=== PATIENT | male | born 1945 | race Two or more races ===

== ENCOUNTER 2017-11-09 15:50 | Inpatient (IN) | payer MEDICARE ==
[~2017-11-09] VITALS: Ht 172.7 cm; Wt 98.4 kg
[2017-11-09] MEDS ORDERED: INSU100I14 SQ ×2 (16:36)
[2017-11-09] MEDS ORDERED: ENOX40DI SQ (16:36)
[2017-11-09] MEDS ORDERED: INSU100V7 SQ (16:36)
[2017-11-09] MEDS ORDERED: AMLO10TA2 PO (16:36)
[2017-11-09] MEDS ORDERED: TRAZ-144 PO (16:36)
[2017-11-09] MEDS ORDERED: INSU100C SQ (16:36)
[2017-11-09] MEDS ORDERED: DIVA250T4 PO (16:36)
[2017-11-09] MEDS ORDERED: RISP0.5T5 PO (16:36)
[2017-11-09] MEDS ORDERED: TAMS-3 PO (16:36)
[2017-11-09] MEDS ORDERED: GLUC1KIT IM (16:36)
[2017-11-09] MEDS ORDERED: DEXT50DI8 IV (16:36)
[2017-11-09 16:50] LABS: BASOPHILS # (AUTO) 0.1 K/uL (0.0-8.0); BASOPHILS % (AUTO) 0.8 % (0.0-2.0); EOSINOPHILS # (AUTO) 0.2 K/uL (0.0-0.7); EOSINOPHILS % (AUTO) 3.2 % (0.0-7.0); HEMATOCRIT 32.7 % (36.7-47.1); LYMPHOCYTES # (AUTO) 1.2 K/uL (20.0-40.0); LYMPHOCYTES % (AUTO) 18.2 % (20.5-51.5); MEAN CORPUSCULAR HEMOGLOBIN 30.7 uug (23.8-33.4); MEAN CORPUSCULAR HGB CONC 34 g/dL (32.5-36.3); MEAN CORPUSCULAR VOLUME 91.5 fL (73.0-96.2); MONOCYTES # (AUTO) 0.6 K/uL (2.0-10.0); MONOCYTES % (AUTO) 9.9 % (0.0-11.0); NEUTROPHILS # (AUTO) 4.4 K/uL (1.8-8.9); NEUTROPHILS % (AUTO) 67.9 % (38.5-71.5); PLATELET COUNT (AUTO) 179 K/uL (152-348); RED BLOOD CELL COUNT(AUTO) 3.57 MIL/uL (4.06-5.63); WHITE BLOOD COUNT (AUTO) 6.5 K/uL (3.6-10.2)
[2017-11-09 17:11] LABS: ACETAMINOPHEN < 2.0 ug/mL (10-30); ALANINE AMINOTRANSFERASE 33 U/L (16-63); ALKALINE PHOSPHATASE 88 U/L (50-136); ASPARTATE AMINOTRANSFERASE 18 U/L (15-37); BILIRUBIN,DIRECT 0.1 mg/dL (0.0-0.2); BILIRUBIN,TOTAL 0.3 mg/dL (0.2-1.0); CARBON DIOXIDE 29 mmol/L (21-32); CHLORIDE 102 mmol/L (98-107); CREATININE 1.1 mg/dL (0.6-1.3); GLUCOSE 102 mg/dL (74-106); POTASSIUM 4.2 mmol/L (3.5-5.1); TOTAL PROTEIN, SERUM 6.9 g/dL (6.4-8.2); UREA NITROGEN, BLOOD 23 mg/dL (7-18)
[2017-11-09 17:25] LABS: *BILIRUBIN,URIN NEGATIVE (NEGATIVE); *BLOOD, URINE Trace-lysed (NEGATIVE); *CLARITY,URINE SLIGHTLY CLOUDY (CLEAR); *COLOR,URINE YELLOW (YELLOW); *KETONES,URINE NEGATIVE (NEGATIVE); *PROTEIN,URINE NEGATIVE (NEGATIVE); *UROBILINOGEN,URINE 0.2 E.U./dl (NORMAL); LEUKOCYTE ESTERASE ,URINE 2+ (NEGATIVE); NITRITE, URINE NEGATIVE (NEGATIVE); RBC,URINE 0-3 /HPF (0-3); UGLUCOSE NEGATIVE (NEGATIVE); WBC,URINE 50-80 /HPF (0-3)
[2017-11-09 17:26] LABS: BACTERIA,URINE FEW /HPF (NONE SEEN); SQUAMOUS EPITHELIAL CELL,UR FEW /HPF (NONE SEEN)
--- NOTE | 2017-11-09 17:28 | NUR ---
PT WAS EVALUATED BY DR JENNINGS. PT WAS TRANSFERED TO U ROOM #139B. REPORT WAS GIVEN TO MHU RN.
[2017-11-09 17:37] LABS: ETHANOL < 3 MG/DL (0-0)
[2017-11-09 17:44] LABS: *AMPHETAMINE, URINE NEGATIVE (NEGATIVE); *BARBITURATE, URINE NEGATIVE (NEGATIVE); *CANNABINOID, URINE NEGATIVE (NEGATIVE); *COCCAINE, URINE NEGATIVE (NEGATIVE); *OPIATE, URINE NEGATIVE (NEGATIVE); *PHENCYCLIDINE SCREEN,URINE NEGATIVE (NEGATIVE)
[2017-11-09] MEDS ORDERED: MAG HYDROX/AL HYDROX/SIMETH 30 ML LIQUID UDC PO PRN (19:30)
[2017-11-09] MEDS ORDERED: CLONAZEPAM 0.5 MG TABLET PO SCH (19:30)
[2017-11-09] MEDS ORDERED: MAGNESIUM HYDROXIDE 30 ML LIQUID UDC PO PRN (19:30)
[2017-11-09] MEDS ORDERED: ACETAMINOPHEN 325 MG TABLET PO PRN (19:30)
[2017-11-09 19:54] VITALS: BP 156/79
[2017-11-09] MEDS: CLONAZEPAM 0.5 MG TABLET PO PRN (19:55)
[2017-11-09] MEDS: INSULIN GLARGINE,HUM 300 UNITS/3 ML CARTRIDGE SQ SCH (22:45)
[2017-11-09] MEDS ORDERED: INSULIN REGULAR, HUMAN 300 UNIT/3 ML VIAL SQ PRN (22:45)
[2017-11-09] MEDS ORDERED: hydrALAZINE HCL 25 MG TABLET PO PRN (22:45)
[2017-11-09] MEDS ORDERED: DEXTROSE 50% 50 ML DISP.SYRIN IV PRN (22:45)
--- NOTE | 2017-11-09 22:49 | NUR ---
PATIENT PRESENT UPON CHANGE OF SHIFT, ON 72 HOUR HOLD DUE TO GRAVELY DISABLED, DR. MEYERS/LINDSEY. PATIENT ALERT/ORIENTED X2 WITH CONFUSION NOTED, PATIENT HYPERVERBAL, ANXIOUS IN AND OUT OF ROOM. SKIN INTACT. PATIENT STATED " I NEED HELP AND SLEEP, I DON'T WANT MY TO SCARED OF ME." PATIENT DENIES PAIN AT THIS TIME,WILL CONTINUE TO MONITOR. NO AGGRESSIVE OR COMBATIVE BEHAVIOR NOTED, WILL CONTINUE TO MONITOR AND REDIRECT. BED IN LOWEST POSITION, BED LOCKED, AND BED ALARM ON WHILE IN BED. PATIENT ORIENTED TO ROOM AND UNIT. PATIENT'S RIGHTS HAND BOOK ,AND ADVISEMENT AT BED SIDE.
[2017-11-10] MEDS: TEMAZEPAM 7.5 MG CAPSULE PO PRN (00:20)
[2017-11-10 07:30] VITALS: BP 151/88
[2017-11-10] MEDS ORDERED: BLOOD SUGAR DIAGNOSTIC 1 EACH STRIP VI SCH (07:30)
[2017-11-10] MEDS: AMLODIPINE 10 MG TABLET PO SCH (08:20)
[2017-11-10] MEDS: CLONAZEPAM 0.5 MG TABLET PO PRN ×2 (08:20→13:16)
[2017-11-10] MEDS: risperiDONE 0.5 MG TABLET PO SCH ×2 (09:42→20:52)
[2017-11-10] MEDS: DIVALPROEX 250 MG TABLET.DR PO SCH ×3 (09:42→16:23)
[2017-11-10] MEDS ORDERED: DEXTROSE 50% 50 ML DISP.SYRIN IV PRN (11:00)
[2017-11-10] MEDS: SULFAMETH/TRIMETH 800/160 MG TABLET PO SCH ×2 (11:13→20:51)
[2017-11-10] MEDS: BLOOD SUGAR DIAGNOSTIC 1 EACH STRIP VI SCH ×3 (11:42→21:03)
[2017-11-10] MEDS: INSULIN REGULAR, HUMAN 300 UNIT/3 ML VIAL SQ PRN (11:43)
--- NOTE | 2017-11-10 12:00 | NUR ---
Firearms Report: KRISTEL completed and submitted [employer] Firearms Report on 11/10/17
--- NOTE | 2017-11-10 13:35 | NUR ---
GPS: Nursing Notes: Thought Disorder: Patient is awake and responding to his name, slightly unsteady gait, needs minimal assistance with ADL's, overly disruptive by constantly talking loud near the nursing station, redirected, but continue to be hyperverbal, A/Ox3, moving around the on w/c, stated, "I am here because I have problems with my head... I am a [place] ..", grandiose behavior, stated, "I went to college for 5 years...", unable to formulate a viable plan for self care, continue with treatment plan.
[2017-11-10 15:03] VITALS: BP 124/73
[2017-11-10 20:00] VITALS: BP 119/72
--- NOTE | 2017-11-10 20:15 | NUR ---
RECEIVED PATIENT IN THE ACTIVITY ROOM.HE IS A/O X3.UPON INTERVIEW HE STATED 'I AM HERE BECAUSE THERE IS SOMETHING WRONG WITH MY HEAD'. HE DENIES SI/HI. HE IS HOWEVER COMPLAINT WITH HIS MEDS AND COOPERATIVE WITH STAFF FOR HIS CARE. WILL CONTINUE TO MONITOR ALL THROUGH THE SHIFT. AMBULATES WITH FWW BUT UNSTEADY WITH GAIT.SAFETY EMPHASIZED.BED ALARM ON AND BED IN LOCKED POSITION.
[2017-11-10] MEDS: TAMSULOSIN HCL 0.4 MG CAP.SR.24H PO SCH (20:51)
[2017-11-10] MEDS: TRAZODONE 100 MG TABLET PO SCH (20:51)
[2017-11-10] MEDS: INSULIN GLARGINE,HUM 300 UNITS/3 ML CARTRIDGE SQ SCH (20:55)
[2017-11-10] MEDS: INSULIN REGULAR, HUMAN 300 UNITS/3 ML VIAL SQ PRN (20:58)
[2017-11-11] MEDS: BLOOD SUGAR DIAGNOSTIC 1 EACH STRIP VI SCH ×4 (06:51→20:37)
[2017-11-11 07:30] VITALS: BP 113/70
[2017-11-11] MEDS: INSULIN REGULAR, HUMAN 300 UNIT/3 ML VIAL SQ PRN ×2 (08:35→12:27)
[2017-11-11] MEDS: AMLODIPINE 10 MG TABLET PO SCH (08:36)
[2017-11-11] MEDS: SULFAMETH/TRIMETH 800/160 MG TABLET PO SCH (08:36)
[2017-11-11] MEDS: DIVALPROEX 250 MG TABLET.DR PO SCH ×3 (08:36→17:23)
[2017-11-11] MEDS: risperiDONE 0.5 MG TABLET PO SCH ×2 (08:36→20:38)
--- NOTE | 2017-11-11 13:59 | NUR ---
Social work note: Patient requested information on social security spousal benefits and these were given to him by Serena [employer] student. He was given information about needed documents. However, will not qualify for these as she is only 57. Patient was advised of this by Serena.
[2017-11-11 15:04] VITALS: BP 147/72
[2017-11-11 20:00] VITALS: BP 148/78
--- NOTE | 2017-11-11 20:30 | NUR ---
RECEIVED PATIENT IN THE DAY ROOM, HE IS NOTED A/O X 2. HE IS ABLE TO AMBULATE WITH A FWW AND ABLE TO MAKE HIS NEEDS KNOWN. HE IS NOTED WITH BRIGHT AFFECT, FORGETFUL, HYPERVERBAL, NEEDY, PACING THE HALLWAY. DENIES SI/HI, NO AGGRESSIVE BX NOTED AT THIS TIME. PT IS COMPLIANT WITH MEDICATION REGIMENT AND PLAN OF CARE AT THIS TIME. SAFETY EMPHASIS, BED AT LOWEST POSITION WITH WHEELS LOCKED AND FREQUENT HEAD CHECKS. WILL CONTINUE TO MONITOR.
[2017-11-11] MEDS: TAMSULOSIN HCL 0.4 MG CAP.SR.24H PO SCH (20:37)
[2017-11-11] MEDS: TRAZODONE 100 MG TABLET PO SCH (20:37)
[2017-11-11] MEDS: INSULIN GLARGINE,HUM 300 UNITS/3 ML CARTRIDGE SQ SCH (20:43)
[2017-11-11] MEDS: INSULIN REGULAR, HUMAN 300 UNITS/3 ML VIAL SQ PRN (20:44)
[2017-11-11] MEDS: AMOXICILLIN TRIHYDRATE 500 MG CAPSULE PO SCH (22:19)
[2017-11-12] MEDS: TEMAZEPAM 7.5 MG CAPSULE PO PRN (00:23)
--- NOTE | 2017-11-12 00:30 | NUR ---
PATIENT NOTED PACING THE HALLWAY, CONTINUE DEMANDING FOR FOOD, CONTINUE NEEDY, HYPERVERBAL AND FORGETFUL. MULTIPLE REDIRECTION GIVEN, YET INEFFECTIVE. RESTORIL 7.5MG PO PRN WAS GIVEN FOR INSOMNIA. WILL CONTINUE TO MONITOR.
--- NOTE | 2017-11-12 01:51 | NUR ---
PATIENT NOTED ASLEEP IN A CHAIR IN THE DAY ROOM. PT WAS REDIRECTED BACK TO HIS ROOM; ONCE IN HIS ROOM, HE CAME OUT REFUSING TO GO TO BED. HE IS NOT SITTING IN A CHAIT IN THE MAIN HALLWAY CLOSE TO THE NURSING STATION. WILL CONTINUE TO MONITOR.
--- NOTE | 2017-11-12 02:47 | NUR ---
PATIENT CONTINUE PACING THE HALLWAY. HE IS NOTED CONFUSED DISORGANIZED, TANGENTIAL SPEECH, HE STATED. "I AM WAITING TO HAVE A HAIR CUT AND SHAVE". "I ALSO NEED TO SHOWER". MULTIPLE REDIRECTONS GIVEN; HOWEVER, INEFFECTIVE, HE CONTINUE REFUSING TO STAY IN HIS ROOM IN BED. WILL CONTINUE TO MONITOR
[2017-11-12] MEDS: AMOXICILLIN TRIHYDRATE 500 MG CAPSULE PO SCH ×3 (05:35→21:09)
[2017-11-12] MEDS: BLOOD SUGAR DIAGNOSTIC 1 EACH STRIP VI SCH ×4 (06:31→20:23)
--- NOTE | 2017-11-12 06:53 | NUR ---
PATIENT SLEPT FOR APPROX 1.30 HRS THROUGH THE NIGHT. HE CONTINUE HYPERVERBAL, ATTENTION SEEKER, NEEDY. HE CONTINUE FIXED ON GETTING A HAIR CUT AND A A SHAVE. CONTINUE ASKING FOR FOOD. BGL ACCU-CHECK WAS 90 THIS AM. WILL CONTINUE TO MONITOR.
[2017-11-12 07:30] VITALS: BP 111/61
--- NOTE | 2017-11-12 08:00 | NUR ---
RECEIVED PATIENT IN THE HALLWAY SITTING ON CELESTINE CHAIR, AFEBRILE, HE IS NOTED A/O X 3. HE IS ABLE TO AMBULATE WITH A FWW AND ABLE TO MAKE HIS NEEDS KNOWN. HE IS NOTED WITH BRIGHT AFFECT, FORGETFUL, HYPERVERBAL, NEEDY, PACING THE HALLWAY. DENIES SI/HI, NO AGGRESSIVE BX NOTED AT THIS TIME. PT IS COMPLIANT WITH MEDICATION REGIMENT AND PLAN OF CARE AT THIS TIME. SAFETY EMPHASIS, BED AT LOWEST POSITION WITH WHEELS LOCKED AND FREQUENT HEAD CHECKS. WILL CONTINUE TO MONITOR.
[2017-11-12] MEDS: risperiDONE 0.5 MG TABLET PO SCH ×2 (08:43→20:17)
[2017-11-12] MEDS: AMLODIPINE 10 MG TABLET PO SCH (08:43)
[2017-11-12] MEDS: DIVALPROEX 250 MG TABLET.DR PO SCH ×3 (08:43→17:08)
[2017-11-12] MEDS: INSULIN REGULAR, HUMAN 300 UNIT/3 ML VIAL SQ PRN (11:53)
--- NOTE | 2017-11-12 13:56 | NUR ---
Initial Discharge Plan: Pt resides at [facility]. [facility] [address]; . Upon discharge pt would like to return home to his , Yesenia Eric, . SW contacted pts , however was unable to speak to her; a message was left asking for a callback. SW will follow up to ensure pt is safely and appropriately discharged.
[2017-11-12 16:11] VITALS: BP 128/70
[2017-11-12 19:36] VITALS: BP 112/73
[2017-11-12] MEDS: INSULIN REGULAR, HUMAN 300 UNITS/3 ML VIAL SQ PRN (20:14)
[2017-11-12] MEDS: INSULIN GLARGINE,HUM 300 UNITS/3 ML CARTRIDGE SQ SCH (20:15)
[2017-11-12] MEDS: TAMSULOSIN HCL 0.4 MG CAP.SR.24H PO SCH (20:17)
[2017-11-12] MEDS: TRAZODONE 100 MG TABLET PO SCH (20:18)
--- NOTE | 2017-11-12 20:30 | NUR ---
RECEIVED PATIENT IN THE DAY ROOM. HE IS NOTED A/O X 2 AND 3. HE IS ABLE TO WALK WITH A FWW AND ABLE TO MAKE HIS NEEDS KNOWN. HE CONTINUE TO BE HYPERVERBAL, HIGH ENERGY, NEEDY, ATTENTION SEEKER. FAIR INSIGHT AND JUDGMENT. PATIENT ABLE TO COMPLY WITH MEDICATION REGIMENT DIET AND PLAN OF CARE. SAFETY EMPHASIS. WILL CONTINUE TO MONITOR CLOSELY.
[2017-11-13] MEDS: AMOXICILLIN TRIHYDRATE 500 MG CAPSULE PO SCH ×3 (05:48→21:48)
[2017-11-13] MEDS: BLOOD SUGAR DIAGNOSTIC 1 EACH STRIP VI SCH ×4 (07:26→21:05)
[2017-11-13 07:56] VITALS: BP 134/75
[2017-11-13] MEDS: DIVALPROEX 250 MG TABLET.DR PO SCH ×3 (08:00→16:42)
[2017-11-13] MEDS: AMLODIPINE 10 MG TABLET PO SCH (08:00)
[2017-11-13] MEDS: risperiDONE 0.5 MG TABLET PO SCH ×2 (08:00→20:21)
[2017-11-13] MEDS: INSULIN REGULAR, HUMAN 300 UNIT/3 ML VIAL SQ PRN (12:32)
--- NOTE | 2017-11-13 15:43 | NUR ---
Gps/General Utility Worker- Conversant, talkative, tends to get loud , interacting fairly well with his peers, making needs known to the staff, denies any discomfort, needed occ. redirections. attend and participates in group therapy
[2017-11-13 15:54] VITALS: BP 137/78
[2017-11-13] MEDS: TAMSULOSIN HCL 0.4 MG CAP.SR.24H PO SCH (20:21)
[2017-11-13] MEDS: TRAZODONE 100 MG TABLET PO SCH (20:31)
[2017-11-13] MEDS: INSULIN REGULAR, HUMAN 300 UNITS/3 ML VIAL SQ PRN (21:08)
[2017-11-13] MEDS: INSULIN GLARGINE,HUM 300 UNITS/3 ML CARTRIDGE SQ SCH (21:09)
[2017-11-13 21:52] VITALS: BP 127/76
[2017-11-14] MEDS: AMOXICILLIN TRIHYDRATE 500 MG CAPSULE PO SCH ×3 (06:02→22:16)
[2017-11-14] MEDS: BLOOD SUGAR DIAGNOSTIC 1 EACH STRIP VI SCH ×4 (06:20→20:56)
--- NOTE | 2017-11-14 06:45 | NUR ---
GPS: REMAIN CALM THROUGH THE SHIFT, IN AND OUT FROM HIS ROOM. NO SLEEP THROUGH THE NIGHT.RESTORIL FOR SLEEP OFFERED,BUT PATIENT STATED I DON'T NEED IT THANK YOU. AMBULATE WITH FWW. PLEASANT UPON APPROACH.CONTINUE MONITORING FOR SAFETY.
[2017-11-14 07:08] LABS: BASOPHILS % (AUTO) 0.7 % (0.0-2.0); EOSINOPHILS # (AUTO) 0.1 K/uL (0.0-0.7); EOSINOPHILS % (AUTO) 1.7 % (0.0-7.0); HEMATOCRIT 33.5 % (36.7-47.1); HEMOGLOBIN 11.4 g/dL (12.5-16.3); LYMPHOCYTES # (AUTO) 1.2 K/uL (20.0-40.0); LYMPHOCYTES % (AUTO) 18.3 % (20.5-51.5); MEAN CORPUSCULAR HEMOGLOBIN 31.1 uug (23.8-33.4); MEAN CORPUSCULAR HGB CONC 34 g/dL (32.5-36.3); MEAN CORPUSCULAR VOLUME 91.8 fL (73.0-96.2); MONOCYTES # (AUTO) 0.7 K/uL (2.0-10.0); MONOCYTES % (AUTO) 10.3 % (0.0-11.0); NEUTROPHILS # (AUTO) 4.4 K/uL (1.8-8.9); PLATELET COUNT (AUTO) 191 K/uL (152-348); RED BLOOD CELL COUNT(AUTO) 3.65 MIL/uL (4.06-5.63); WHITE BLOOD COUNT (AUTO) 6.4 K/uL (3.6-10.2)
[2017-11-14 07:45] LABS: ALANINE AMINOTRANSFERASE 31 U/L (16-63); ALKALINE PHOSPHATASE 70 U/L (50-136); ASPARTATE AMINOTRANSFERASE 18 U/L (15-37); BILIRUBIN,TOTAL 0.4 mg/dL (0.2-1.0); CARBON DIOXIDE 30 mmol/L (21-32); CHLORIDE 102 mmol/L (98-107); CREATININE 1.3 mg/dL (0.6-1.3); GLUCOSE 90 mg/dL (74-106); MAGNESIUM 1.9 mg/dL (1.8-2.4); PHOSPHOROUS 3.2 mg/dL (2.5-4.9); POTASSIUM 3.6 mmol/L (3.5-5.1); TOTAL PROTEIN, SERUM 7.1 g/dL (6.4-8.2); UREA NITROGEN, BLOOD 21 mg/dL (7-18)
[2017-11-14 07:56] VITALS: BP 134/81
[2017-11-14] MEDS: risperiDONE 0.5 MG TABLET PO SCH ×2 (08:09→20:19)
[2017-11-14] MEDS: DIVALPROEX 500 MG TABLET.DR PO SCH ×2 (08:09→16:03)
[2017-11-14] MEDS: AMLODIPINE 10 MG TABLET PO SCH (08:10)
[2017-11-14] MEDS ORDERED: DIVALPROEX 250 MG TABLET.DR PO SCH (09:00)
[2017-11-14] MEDS: INSULIN REGULAR, HUMAN 300 UNIT/3 ML VIAL SQ PRN ×2 (11:10→16:06)
[2017-11-14 15:40] VITALS: BP 146/76
[2017-11-14 20:00] VITALS: BP 132/72
[2017-11-14] MEDS: TRAZODONE 100 MG TABLET PO SCH (20:19)
[2017-11-14] MEDS: TAMSULOSIN HCL 0.4 MG CAP.SR.24H PO SCH (20:19)
[2017-11-14] MEDS: INSULIN GLARGINE,HUM 300 UNITS/3 ML CARTRIDGE SQ SCH (21:02)
[2017-11-14] MEDS: INSULIN REGULAR, HUMAN 300 UNITS/3 ML VIAL SQ PRN (21:03)
[2017-11-15] MEDS: AMOXICILLIN TRIHYDRATE 500 MG CAPSULE PO SCH ×3 (06:05→21:03)
--- NOTE | 2017-11-15 06:32 | NUR ---
GPS: REMAIN CALM AND COOPERATIVE WITH MEDICATIONS AND CARE.SLEPT 6:30 HRS THROUGH THE NIGHT.NO AGITATION NOTED.CONTINUE PLAN OF CARE.
[2017-11-15] MEDS: BLOOD SUGAR DIAGNOSTIC 1 EACH STRIP VI SCH ×4 (06:41→20:17)
[2017-11-15 08:27] VITALS: BP 146/83
[2017-11-15] MEDS: risperiDONE 0.5 MG TABLET PO SCH (08:41)
[2017-11-15] MEDS: DIVALPROEX 500 MG TABLET.DR PO SCH ×2 (08:41→16:45)
[2017-11-15] MEDS: AMLODIPINE 10 MG TABLET PO SCH (08:42)
--- NOTE | 2017-11-15 11:53 | NUR ---
RECEIVED Pt IN DAY ROOM, A/O X 3, COOPERATIVE, HYPERVERBAL, BRIGHT AFFECT, DENIES SI. COMPLIANT WITH MEDS AND CARE STAFF. PARTICIPATED IN GROUP ACTIVITIES THIS MORNING. Pt ABLE TO MAKE HIS NEEDS KNOWN.
--- NOTE | 2017-11-15 12:30 | NUR ---
BLOOD SUGAR @ 1130 WAS 149. WILL ADMINISTER 2 UNITS OF INSULIN PER SLIDING SCALE PROTOCOL.
[2017-11-15] MEDS: INSULIN REGULAR, HUMAN 300 UNIT/3 ML VIAL SQ PRN (13:21)
[2017-11-15 16:34] VITALS: BP 131/77
[2017-11-15 20:00] VITALS: BP 140/70
[2017-11-15] MEDS: risperiDONE 1 MG TABLET PO SCH (20:16)
[2017-11-15] MEDS: TRAZODONE 100 MG TABLET PO SCH (20:16)
[2017-11-15] MEDS: TAMSULOSIN HCL 0.4 MG CAP.SR.24H PO SCH (20:17)
[2017-11-15] MEDS: INSULIN GLARGINE,HUM 300 UNITS/3 ML CARTRIDGE SQ SCH (20:20)
[2017-11-15] MEDS: INSULIN REGULAR, HUMAN 300 UNITS/3 ML VIAL SQ PRN (20:20)
[2017-11-15] MEDS ORDERED: risperiDONE 0.5 MG TABLET PO SCH (21:00)
[2017-11-16] MEDS: BLOOD SUGAR DIAGNOSTIC 1 EACH STRIP VI SCH ×2 (06:35→11:34)
--- NOTE | 2017-11-16 06:57 | NUR ---
AM BG 83, SHOWERED THIS MORNING. PENDING D/C HOME TODAY. SLEPT 4 HOURS.
[2017-11-16 07:30] VITALS: BP 151/89
--- NOTE | 2017-11-16 08:30 | NUR ---
PATIENT VISIBLE AROUND UNIT, RESTLESS, PACING BACK AND FORTH THE HALLWAYS AND DAYROOM , AMBULATES WITH FWW, PLEASANT ON APPROACH, NEEDY, PREOCCUPIED WITH SNACKS. MEDICATION COMPLIANT AND COOPERATIVE, NO C/O PAIN OR DISCOMFORT NOTED. PATIENT IS FOR DISCHARGED HOME TODAY. DENIES SI/HI/AH. WILL MONITOR FOR SAFETY AND NEEDS.
[2017-11-16] MEDS ORDERED: SULFAMETH/TRIMETH 800/160 MG TABLET PO SCH (09:00)
[2017-11-16] MEDS: DIVALPROEX 500 MG TABLET.DR PO SCH (09:05)
[2017-11-16 09:06] VITALS: BP 151/89
[2017-11-16] MEDS: AMLODIPINE 10 MG TABLET PO SCH (09:06)
[2017-11-16] MEDS: risperiDONE 1 MG TABLET PO SCH (09:06)
--- NOTE | 2017-11-16 10:46 | NUR ---
Discharge Note: Patient will be discharged back home with his [[place] [address]; [phone]] via private transportation between 12:30 and 1pm. Spoke with patients son, Bartolo ([phone]) who is willing to provide transportation and is aware and agreeable with discharge plans. Patient is aware and agreeable with discharge plans. Patient will follow-up with his Primary Care Physician, Dr. Currie and his outpatient Psychiatrist, Dr. Vince Antonio at the [facility] [[address] [place] [address]; [phone]]. Patient requested DME order for FWW. Faxed to [address] ([phone]) who will follow-up with the patient and deliver DME to patients home. Patient was provided with outpatient mental health resources to [facility] , [facility] , and the National Suicide Prevention Lifeline . Patient was also given information for application for ACCESS transportation.
[2017-11-16] MEDS: INSULIN REGULAR, HUMAN 300 UNIT/3 ML VIAL SQ PRN (11:35)
--- NOTE | 2017-11-16 12:19 | NUR ---
Patient will be dishcarged home with his and son in a private transportation, discharged instructions reviewed with patient and his family, educate the importance of follow up check up with his primary physician Dr. Currie and outpatient psychiatrist, Dr. Vince Antonio, educate the importance of medication compliant. Patient was provided with mental health resources to [facility], prescription given, belongings and properties returned. Education materials provided. Disharged home at around 1215 with all the properties and discharged papers via wheelchair accompanied by family and staff.
== END 2017-11-16 13:14 | disposition home or self-care (01) | DRG 885 ==
LOC: ER 15:50 → GPS 18:02
PROVIDERS: ADMIT Psychiatry & Neurology Psychiatry; ATTEND Internal Medicine
DX: F31.2 Bipolar disorder, current episode manic severe with psychotic features (principal); N18.9 Chronic kidney disease, unspecified; B95.2 Enterococcus as the cause of diseases classified elsewhere; E11.65 Type 2 diabetes mellitus with hyperglycemia; E11.22 Type 2 diabetes mellitus with diabetic chronic kidney disease; N39.0 Urinary tract infection, site not specified; I12.9 Hypertensive chronic kidney disease with stage 1 through stage 4 chronic kidney disease, or unspecified chronic kidney disease; Z79.4 Long term (current) use of insulin; F43.10 Post-traumatic stress disorder, unspecified; Z87.442 Personal history of urinary calculi; E66.9 Obesity, unspecified; Z68.33 Body mass index [BMI] 33.0-33.9, adult; Z71.3 Dietary counseling and surveillance; Z87.891 Personal history of nicotine dependence; G47.9 Sleep disorder, unspecified; D64.9 Anemia, unspecified; E78.5 Hyperlipidemia, unspecified
CPT/HCPCS: 36415; 70030-TC; 70450; 71045; 80164; 80307; 83605; 83735; 84100; 84443; 85025; 85730; 87040; 87077; 87086; 93005; 97116; 97530; A4663; G0480; G0480-TC; J1815; J3490